=== PATIENT | female | born 1955 | race Caucasian/White ===

== ENCOUNTER 2016-07-05 19:05 | Observation (INO) | payer MEDICAID ==
[2016-07-05 19:07] VITALS: O2SAT 98
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
[2016-07-05] MEDS ORDERED: ceFAZolin 2 GM PREMIX 50 ML IV STA (19:26)
[2016-07-05 19:27] LABS: I-STAT POTASSIUM 3.5 MMOL/L (3.5-4.9)
[2016-07-05 19:30] LABS: AUTOMATED NEUTROPHIL # 2.5 TH/MM3 (1.8-7.7); BASOPHIL # 0.1 TH/MM3 (0-0.2); BASOPHIL % 1.3 % (0.0-2.0); EOSINOPHIL # 0.1 TH/MM3 (0-0.4); EOSINOPHIL % 2.5 % (0.0-4.0); HEMATOCRIT 35.1 % (35.0-46.0); HEMO FLAGS DIFF FINAL; LYMPHOCYTE # 1.1 TH/MM3 (1.0-4.8); MEAN CORPUSCULAR HEMOGLOBIN 33.4 PG (27.0-34.0); MEAN CORPUSCULAR HGB CONC 32.8 % (32.0-36.0); MONO % 10.4 % (0.0-8.0); NEUT % 58.8 % (16.0-70.0); PLATELET COUNT 191 TH/MM3 (150-450); RED BLOOD COUNT 3.45 MIL/MM3 (4.00-5.30); RED CELL DISTRIBUTION WIDTH 14.2 % (11.6-17.2); WHITE BLOOD COUNT 4.2 TH/MM3 (4.0-11.0)
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
[2016-07-05 19:41] LABS: APTT (PATIENT) 22.1 SEC (24.3-30.1); PROTHROMBIN TIME - PATIENT 10.8 SEC (9.8-11.6)
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
[2016-07-05 20:00] VITALS: BP 136/77; PULSE 114; RESP 22; O2SAT 99
[2016-07-05] MEDS ORDERED: NORV2.5T PO (20:00)
[2016-07-05] MEDS ORDERED: CLON0.2T PO (20:00)
[2016-07-05] MEDS ORDERED: SODIUM CHLOR 0.9% 1000 ML INJ 1,000 ML IV ONE (20:45)
[2016-07-05] MEDS ORDERED: Post-op Orders (for Pharmacy) MISC XX ONE (21:00)
[2016-07-05] MEDS ORDERED: cloNIDine HCL 0.2 MG/24 HR PATCH T-DERMAL ONE (21:00)
[2016-07-05] MEDS: SODIUM CHLORIDE 0.9% FLUSH 10 ML FLUSH IV FLUSH SCH (21:00)
[2016-07-05] MEDS ORDERED: SODIUM CHLORIDE 0.9% FLUSH 10 ML FLUSH IV FLUSH PRN (21:00)
[2016-07-05] MEDS ORDERED: NALOXONE HCL 0.4 MG/ML AMP IV PRN (21:00)
[2016-07-05] MEDS ORDERED: ONDANSETRON HCL 4 MG/2 ML VIAL IV PRN (21:00)
[2016-07-05] MEDS ORDERED: PANTOPRAZOLE SOD 40 MG DELAYED RELEASE TAB PO SCH (21:00)
[2016-07-05] MEDS: SODIUM CHLOR 0.9% 1000 ML INJ 1,000 ML IV SCH (22:06)
[2016-07-05] MEDS: ACETAMINOPHEN 325 MG TAB PO PRN (23:03)
[2016-07-06 00:27] VITALS: BP 149/80; PULSE 120; RESP 19; TEMP 98.1; O2SAT 96
[2016-07-06 03:46] VITALS: BP 143/92; PULSE 131; RESP 21; TEMP 98.2; O2SAT 96
[2016-07-06] MEDS: ACETAMINOPHEN 325 MG TAB PO PRN ×3 (03:50→13:35)
[2016-07-06] MEDS: SODIUM CHLOR 0.9% 1000 ML INJ 1,000 ML IV SCH (06:21)
[2016-07-06 07:17] LABS: AUTOMATED NEUTROPHIL # 2.7 TH/MM3 (1.8-7.7); BASOPHIL % 0.8 % (0.0-2.0); EOSINOPHIL # 0.1 TH/MM3 (0-0.4); EOSINOPHIL % 1.7 % (0.0-4.0); HEMATOCRIT 27.4 % (35.0-46.0); HEMO FLAGS DIFF FINAL; LYMPH % 24.8 % (9.0-44.0); LYMPHOCYTE # 1.1 TH/MM3 (1.0-4.8); MEAN CELL VOLUME 100.1 FL (80.0-100.0); MEAN CORPUSCULAR HEMOGLOBIN 34.7 PG (27.0-34.0); MEAN CORPUSCULAR HGB CONC 34.7 % (32.0-36.0); MONO % 8.6 % (0.0-8.0); NEUT % 64.1 % (16.0-70.0); PLATELET COUNT 174 TH/MM3 (150-450); RED BLOOD COUNT 2.74 MIL/MM3 (4.00-5.30); RED CELL DISTRIBUTION WIDTH 14.4 % (11.6-17.2); WHITE BLOOD COUNT 4.3 TH/MM3 (4.0-11.0)
[2016-07-06 07:37] LABS: BICARBONATE 22.1 MEQ/L (21.0-32.0); POTASSIUM 3.1 MEQ/L (3.5-5.1)
[2016-07-06 08:27] VITALS: BP 188/112; PULSE 127; RESP 18; TEMP 97.7; O2SAT 97
[2016-07-06] MEDS: SODIUM CHLORIDE 0.9% FLUSH 10 ML FLUSH IV FLUSH SCH (09:00)
[2016-07-06 11:16] VITALS: BP 181/95; PULSE 123; RESP 22; TEMP 98; O2SAT 97
[2016-07-06] MEDS ORDERED: ACET325T PO (12:29)
[2016-07-06] MEDS ORDERED: IBUP-232 PO (12:29)
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
[2016-07-06] MEDS ORDERED: cloNIDine HCL 0.2 MG/24 HR PATCH T-DERMAL ONE (14:00)
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
== END 2016-07-06 14:20 | disposition home or self-care (01) ==
LOC: NEPI 19:05 → EDBD 20:47 → INTOOBSV 20:47 → NEDA 20:47 → NEPGCP 23:59 → UNDODISIN 07-06 14:20
PROVIDERS: ADMIT Surgery; ATTEND Surgery
DX: S01.01XA Laceration without foreign body of scalp, initial encounter (principal); R00.0 Tachycardia, unspecified; I10 Essential (primary) hypertension; I95.9 Hypotension, unspecified; Z88.5 Allergy status to narcotic agent; Y08.89XA Assault by other specified means, initial encounter
CPT/HCPCS: 12001; 70450; 71010; 80048; 80307; 82435; 82565; 82947; 84132; 84295; 84520; 85025; 85610; 85730; 86850; 86900; 86901; 96374; 99291; G0378; J7030; G0390